=== PATIENT | male | born 1980 | race African-American/Black ===

== ENCOUNTER 2019-03-13 17:30 | Emergency (ER) | payer OTHER ==
[~2019-03-13] VITALS: Ht 188 cm; Wt 65.0 kg
[2019-03-13] MEDS ORDERED: IBUPROFEN 600MG TABLET PO ONE (20:30)
[2019-03-13 22:55] VITALS: BP 138/82
== END 2019-03-13 23:09 | disposition home or self-care (01) ==
LOC: ER 17:30
DX: S60.221A Contusion of right hand, initial encounter (principal); M79.641 Pain in right hand; M25.531 Pain in right wrist; I10 Essential (primary) hypertension; F12.10 Cannabis abuse, uncomplicated; F17.200 Nicotine dependence, unspecified, uncomplicated; Z98.890 Other specified postprocedural states; W22.8XXA Striking against or struck by other objects, initial encounter; Y93.89 Activity, other specified; Y92.89 Other specified places as the place of occurrence of the external cause; Y99.8 Other external cause status
CPT/HCPCS: 73110; 73130; 99283

== ENCOUNTER 2020-10-10 09:41 | Emergency (ER) | payer MEDICAID, OTHER ==
[~2020-10-10] VITALS: Ht 188 cm; Wt 77.0 kg
[2020-10-10] MEDS ORDERED: SODIUM CHLORIDE 0.9% 1000ML BAG (SEPSIS BOLUS) IV ONE (10:00)
[2020-10-10] MEDS ORDERED: PIPERACILLIN/TAZ 3.375G PREMIX 50 ML IV ONE (10:00)
[2020-10-10] MEDS ORDERED: VANCOMYCIN 1 G PREMIX 200 ML IV ONE (10:00)
[2020-10-10] MEDS ORDERED: ONDANSETRON HCL 4MG/2ML INJ IV ONE (10:15)
[2020-10-10] MEDS ORDERED: MORPHINE SULFATE 4 MG/ML CPJ (NOT FOR IM USE) IV ONE (10:15)
[2020-10-10] MEDS ORDERED: TETANUS, DIPHTHERIA, PERTUSSIS VAC/PF 0.5ML (>7YR OLD) IM ONE (10:15)
[2020-10-10 10:57] LABS: BASOPHILS % 0.6 % (0.0-2.0); EOSINOPHILS % 0.9 % (0.0-5.0); HEMATOCRIT. 36.9 % (42.0-52.0); HEMOGLOBIN. 12.3 g/dL (14.0-18.0); LYMPHOCYTES % 16.7 % (20.0-50.0); MEAN CORPUSCULAR HEMOGLOBIN 31.2 pg (28.0-32.0); MEAN CORPUSCULAR VOLUME 93.5 fL (80.0-94.0); MONOCYTES % 11.2 % (2.0-8.0); NEUTROPHILS % 70.6 % (40.0-76.0); PLATELET 228 x1000/uL (130-400); RED BLOOD CELL COUNT 3.94 mill/uL (4.7-6.1); RED CELL DISTRIBUTION WIDTH 15.5 % (11.6-14.6)
[2020-10-10 11:01] LABS: CHLORIDE 98 mEq/L (98-107)
[2020-10-10 11:06] LABS: INR 0.9; PARTIAL THROMBOPLASTIN TIME 28.4 sec (23.4-31.0); PROTHROMBIN TIME 9.8 sec (9.6-11.0)
[2020-10-10] MEDS: AMPICILLIN SOD/SULBACTAM NA 3 G in SODIUM CHLORIDE 0.9% 100 ML IV SCH ×2 (16:45→23:41)
[2020-10-10] MEDS: VANCOMYCIN 1 G PREMIX 200 ML IV SCH (17:14)
[2020-10-10] MEDS: MORPHINE SULFATE 4 MG/ML CPJ (NOT FOR IM USE) IV PRN (22:28)
[2020-10-11] MEDS: AMPICILLIN SOD/SULBACTAM NA 3 G in SODIUM CHLORIDE 0.9% 100 ML IV SCH ×3 (06:30→12:29)
[2020-10-11] MEDS: MORPHINE SULFATE 4 MG/ML CPJ (NOT FOR IM USE) IV PRN (11:17)
[2020-10-11] MEDS: VANCOMYCIN 1 G PREMIX 200 ML IV SCH (12:20)
[2020-10-11 15:15] VITALS: BP 158/100
== END 2020-10-11 16:15 | disposition short-term general hospital (02) ==
LOC: ER 09:41
DX: S61.452A Open bite of left hand, initial encounter (principal); L03.114 Cellulitis of left upper limb; M65.842 Other synovitis and tenosynovitis, left hand; I10 Essential (primary) hypertension; Z98.890 Other specified postprocedural states; Z20.828 Contact with and (suspected) exposure to other viral communicable diseases; W54.0XXA Bitten by dog, initial encounter; Y93.89 Activity, other specified; Y92.89 Other specified places as the place of occurrence of the external cause; Y99.8 Other external cause status
CPT/HCPCS: 36415; 73130; 80048; 83605; 84145; 85025; 85610; 85730; 87040; 87086; 87426; 90471; 90715; 93005; 96365; 96366; 96368; 96375; 96376; 99285; J0295; J2270; J2405; J2543; J3370; J7030; J7050